=== PATIENT | female | born 1960 | race African-American/Black ===

== ENCOUNTER 2019-07-31 11:46 | Inpatient (IN) | payer BC ==
--- NOTE | 2019-07-31 13:00 | RAD ---
Chest AP view INDICATION: Cough COMPARISON: June 20, 2016 FINDINGS: Lungs:There is a parenchymal scarring involving the left midlung, left upper lobe and right upper lob e appears stable. There are new patchy airspace opacities within the right midlung and right infrahilar region as well as within the left infrahilar region suspicious for pneumonia. Cardiac silhouette:There is moderate cardiomegaly which is stable Pulmonary vasculature:Normal Pleural spaces:No pleural effusion or pneumothorax is demonstrated. Upper abdomen:No abnormality seen. Osseous structures: No acute osseous abnormality. Additional findings:None. IMPRESSION: New bilateral airspace opacities suspicious for pneumonia. Recommend radiographic follow- up to resolution.
[2019-07-31] MEDS ORDERED: Digoxin 0.5 MG/2 ML AMP ONE (13:06)
[2019-07-31] MEDS ORDERED: Magnesium 2 GM/50 ML BAG (IN WATER) ONE (13:06)
[2019-07-31 13:07] LABS: #Eosinphils 0.1 thou/uL (0.0-0.7); #Lymphocytes 1.6 thou/uL (1.20-3.40); #Monocytes 0.5 thou/uL (0.11-0.59); #Neutrophils 5.2 thou/uL (1.40-6.50); %Lymphocytes 21.6 % (21.0-51.0); %Monocytes 7.1 % (0.0-10.0); %Neutrophils 70.3 % (42.0-75.0); Hemoglobin 12.7 g/dL (12.0-16.0); Mean Corpuscular HGB CONC 31.2 g/dL (32.0-36.0); Mean Corpuscular Hemoglobin 26.7 pg (27.0-31.0); Mean Corpuscular Volume 85.5 fL (78.0-98.0); Mean Platelet Volume 10.6 fL (7.4-10.4); Platelet Count 191 thou/uL (130-400); RBC Distribution Width 13.9 % (11.5-14.5); Red Blood Cell (RBC) Count 4.77 mill/uL (4.20-5.40); White Blood Cell (WBC) Count 7.4 thou/uL (4.8-10.8)
[2019-07-31] MEDS ORDERED: Diltiazem 125 MG/25 ML ONE (13:07)
[2019-07-31 13:15] LABS: PTT 34.2 SEC (22.9-36.1)
[2019-07-31 13:16] LABS: D-Dimer Test 0.92 *mcg/mL (0.27-0.43); Prothrombin Time 13.3 SEC (12.0-14.7)
[2019-07-31 13:47] LABS: ALT (SGPT) 34 U/L (8-55); AST (SGOT) 24 U/L (5-34); Albumin 3.7 g/dL (3.5-5.0); Alkaline Phosphatase 110 U/L (40-110); Anion Gap 10 mmol/L (10-20); BUN (Urea Nitrogen) 16 mg/dL (9.8-20.1); Bilirubin, Total 0.5 mg/dL (0.2-1.2); Calc. Creatinine Clearance 0 mL/min (70-130); Calcium 8.7 mg/dL (7.8-10.44); Carbon Dioxide 29 mmol/L (22-29); Chloride 107 mmol/L (98-107); Estimated GFR-MDRD 86; Globulin 3.3 g/dL (2.4-3.5); Glucose 111 mg/dL (70-105); Potassium 3.4 mmol/L (3.5-5.1); Sodium 143 mmol/L (136-145)
--- NOTE | 2019-07-31 14:43 | CT ---
CTA Angio Chest W WO Con 07/31/2019 1:26 PM Indication: Shortness of breath and wheezing Technique: Multiple CTA images were obtained of the thorax with IV contrast. 3-D rendering: MIP more nstructed images were created and reviewed. Comparison: Chest radiograph dated July 31, 2019 and April 20, 2016 Findings: Pulmonary arteries: No central or segmental pulmonary embolus is evident. Mild enlargement of the pu lmonary arteries. The right main pulmonary measures 3 cm. Left main pulmonary artery measures 2.9 cm. The main pulmonary artery measures 3.3 cm. Findings may reflect sequela of underlying secondary p ulmonary artery hypertension. Heart and Aorta: There are vascular consultations of the thoracic aorta. Heart size is mildly enlarg ed. There is a very small pericardial effusion. Mediastinum:Few shotty appearing lymph nodes are seen within the superior and anterior mediastinum as well as within the prevascular space. Lungs:There are patchy areas of peripheral groundglass opacity seen within the right lower lobe, righ t middle lobe and anterior right upper lobe. There are areas of peribronchial thickening involving both upper lobes, left lower lobe and lingula can be seen with a bronchitis. Pleural space: Small bilateral pleural effusions, left greater than right Upper Abdomen: Nodular morphology of the liver suspicious for underlying cirrhosis. Osseous Structures: No acute osseous abnormality. Soft tissues:No abnormality. Other findings:None. Impression: 1. No central or segmental pulmonary embolus. 2. Prominent areas of peribronchial soft tissue thickening involving both upper lobes, lingula and le ft lower lobe suspicious for a bronchitis. 3. Areas of peripheral groundglass disease involving the right lung is suspicious for a infectious pn eumonitis. Recommend CT follow-up to document clearance. 4. Small bilateral pleural effusions. 5. Mild cardiomegaly with small pericardial effusion. 6. Cirrhotic morphology of the liver.
[2019-07-31 16:24] LABS: Troponin I Less than 0.010 ng/mL (< 0.028)
[2019-07-31 19:26] LABS: Troponin I Less than 0.010 ng/mL (< 0.028)
[2019-07-31] MEDS ORDERED: Sodium Chloride For Inhalation 0.9% 3 ML NEB ONE (20:02)
[2019-07-31] MEDS ORDERED: Albuterol Sulfate 2.5 mg/3 ml Neb ONE ×2 (20:02→20:03)
--- NOTE | 2019-07-31 21:30 | HP ---
CHIEF COMPLAINT: Shortness of breath and heart racing fast. HISTORY OF PRESENT ILLNESS: Ms. Ortez is a 58-year-old Afro-Chinese female with past medical history of hypertension, bronchial asthma, came to the office with complaint of shortness of breath going on for a week. The patient states that her shortness of breath is mainly on exertion. She is also having some palpitations as well. Did not have any chest pain, nausea, or vomiting. No headache. No dizziness. She was evaluated in the office and found to have atrial flutter on EKG, so she was sent to the ER, where she was evaluated and found to have atrial flutter with rapid ventricular rate and also some pneumonitis. She was given antibiotics, Levaquin and vancomycin; and was given Cardizem bolus as well as started on infusion. The patient is to have atrial flutter with rapid ventricular rate, but she does not have any shortness of breath. No chest pain. PAST MEDICAL HISTORY: 1. Hypertension. 2. Hyperlipidemia. 3. Bronchial asthma. CURRENT MEDICATIONS: The patient is on blood pressure medication, but is not clear on which medication she is on. Also, on DuoNeb q.i.d. PAST SURGICAL HISTORY: Nothing significant currently. FAMILY HISTORY: Nothing contributory. SOCIAL HISTORY: The patient lives with family. No history of smoking. No history of alcohol. REVIEW OF SYSTEMS: CARDIOVASCULAR: Has shortness of breath. No chest pain. RESPIRATORY: Has cough, congestion, and shortness of breath. No fever. GASTROINTESTINAL: No nausea or vomiting. No abdominal pain. CENTRAL NERVOUS SYSTEM: No headache. No dizziness. PHYSICAL EXAMINATION: GENERAL: The patient is alert, awake, and oriented x3. VITAL SIGNS: Temperature 98, pulse 140, respiration 28, blood pressure 140/90. HEENT: Head is normocephalic, atraumatic. Pupils equal and reactive. Nasopharynx is pale and dry. NECK: Supple. No JVD. LUNGS: Bilateral air entry present. Expiratory wheeze present. HEART: S1, S2. Irregularly irregular, tachycardic. ABDOMEN: Soft. No tenderness. No distention. No organomegaly. Bowel sounds present. RECTAL: Deferred. CENTRAL NERVOUS SYSTEM: No focal deficits. LABORATORY DATA: Unable to access the labs at this time, but it will be reviewed later. IMAGING DATA: Chest x-ray shows possible pneumonitis. EKG shows atrial flutter with rapid ventricular rate of 146. ASSESSMENT: 1. Atrial flutter, new onset with rapid ventricular rate. 2. Possible pneumonitis. 3. Bronchial asthma. 4. Hypertension. 5. Hyperlipidemia. PLAN: 1. Vital signs q.4 hours. 2. Activity as tolerated. 3. Allergies, NKDA. 4. Hep-Lock. 5. Cardizem infusion at 20 mL/hr. 6. DuoNeb 1 unit q.i.d. p.r.n. 7. Continue home medications. 8. Troponin-I q.6 hours x2. 9. Cardiology consult and I will get thyroid panel as well. Job ID: [id number]
[2019-07-31 22:23] VITALS: BMI 46.0
[2019-07-31] MEDS ORDERED: Sodium Chloride 0.9% 1,000 ML IV SCH (22:45)
[2019-07-31] MEDS: Enoxaparin Sodium 100 MG/ML SYRINGE SC SCH (23:42)
[2019-07-31] MEDS ORDERED: Enoxaparin Sodium 100 MG/ML SYRINGE ONE (23:44)
[2019-07-31] MEDS: Amiodarone 450 MG in Dextrose 5% in Water 250 ML IVPB SCH (23:53)
[2019-08-01] MEDS ORDERED: Prevnar 13-Val Conj/PF 0.5 ML SYRINGE IM ONE (06:45)
[2019-08-01] MEDS: Enoxaparin Sodium 100 MG/ML SYRINGE SC SCH ×2 (09:46→20:51)
[2019-08-01] MEDS: Amiodarone 450 MG in Dextrose 5% in Water 250 ML IVPB SCH (09:49)
[2019-08-01] MEDS ORDERED: Potassium Chloride 20 MEQ TAB PO SCH (10:00)
--- NOTE | 2019-08-01 10:26 | CON ---
DATE OF CONSULTATION: 07/31/2019 REASON FOR CONSULTATION: Atrial flutter. HISTORY OF PRESENT ILLNESS: Ms. Ortez is a very pleasant 58-year-old female who comes to the hospital for tachycardia and shortness of breath. She was seen in the ER and found to be in rapid atrial flutter, heart rate in the 140s, so Cardiology is being consulted for this. She has been diagnosed with what appears to be a pneumonitis and is on antibiotics for this. She is on room air and breathing comfortably. PAST MEDICAL HISTORY: 1. Hypertension. 2. Hyperlipidemia. 3. Bronchial asthma. OUTPATIENT MEDICATIONS: 1. Loratadine. 2. Ibuprofen. 3. Advair Diskus. 4. Albuterol inhaler. 5. Rosuvastatin 10 mg a day. 6. Montelukast. 7. Lisinopril/hydrochlorothiazide 20/12.5 mg twice a day. ALLERGIES: VADIM. PAST SURGICAL HISTORY: None. FAMILY HISTORY: Noncontributory. SOCIAL HISTORY: No alcohol, tobacco, or drugs. REVIEW OF SYSTEMS: A 12-point review of systems was done and was all negative unless stated in the history of present illness. PHYSICAL EXAMINATION: VITAL SIGNS: Temperature 98.4, pulse 140, respiratory rate 20, saturating 92% on room air, and blood pressure 147/105. GENERAL: Awake, alert, and oriented x3, in no distress. HEENT: Normocephalic and atraumatic. NECK: Supple. LUNGS: Reduced breath sounds with expiratory wheezes. CARDIOVASCULAR: S1 and S2. No S3 or S4. No murmurs. Tachycardic in the 140s. ABDOMEN: Soft. Positive bowel sounds. EXTREMITIES: Trace edema. SKIN: Warm and dry. LABORATORY DATA: Laboratory work was reviewed. White count of 7, hemoglobin 12, hematocrit 40, and platelet count 191. Coags were reviewed. Chemistries were reviewed. Troponin is undetectable. Potassium was 3.4. TSH was low at 0.26. BNP was 124. EKG was reviewed. ASSESSMENT: 1. Typical atrial flutter. 2. Bronchial asthma. 3. Possible pneumonitis. PLAN: 1. She is going fast on diltiazem drip. She is not slowing down. We will plan on loading her with amiodarone with an amiodarone drip and we will plan on EDEN cardioversion tomorrow. Full anticoagulation with full-dose Lovenox. 2. We spoke at length with risks and benefits of the procedure and the patient agrees to proceed. 3. Further recommendations after cardioversion. 4. We would check full thyroid studies, but her TSH is low. 5. We will follow. Job ID: [id number]
[2019-08-01 11:21] LABS: Free T4 (Free Thyroxine) 1.04 ng/dL (0.70-1.48)
[2019-08-01] MEDS ORDERED: PROVENTIL INHALER 6.7 G (200 INHALATIONS) INH PRN (12:18)
[2019-08-01] MEDS ORDERED: Diltiazem 125 MG in Sodium Chloride 0.9% 100 ML IVPB SCH (12:30)
[2019-08-01] MEDS ORDERED: Lisinopril/Hydrochlorothiazide 20 mg/12.5 mg Tablet PO SCH (12:30)
[2019-08-01] MEDS ORDERED: Loratadine 10 MG TAB PO SCH (12:30)
[2019-08-01] MEDS: Lisinopril/Hydrochlorothiazide 20 mg/12.5 mg Tablet PO SCH (13:58)
--- NOTE | 2019-08-01 18:31 | PDOC.CPN ---
- Subjective Date: 08/01/19 Time: 18:10 Interval history: She is doing well. She denies any chest pain, no palpitations. Her breathing is much better. - Review of Systems General: denies: fever/chills, weight/appetite/sleep changes, night sweats, fatigue Respiratory: denies: cough, congestion, shortness of breath, exercise intolerance Cardiovascular: denies: chest pain, palpitation, edema, paroxysmal nocturnal dyspnea, orthopnea Gastrointestinal: denies: nausea, vomiting, diarrhea, constipation, abd pain, GI bleeding Musculoskeletal: denies: pain, tenderness, stiffness, swelling, arthritis/ arthralgias Neurological: denies: numbness, syncope, seizure, weakness - Objective Allergies/Adverse Reactions: Allergies Allergy/AdvReac Type Severity Reaction Status Date / Time fexofenadine [From Gabby] Allergy Verified 07/31/19 22:26 Visit Medications: Current Medications Albuterol Sulfate (Proventil Hfa) 1 puff INH PRN PRN PRN Reason: SOB Albuterol/Ipratropium (Duoneb) 3 ml NEB QIDPRN PRN PRN Reason: SOB Enoxaparin Sodium (Lovenox) 100 mg SC 0900,2100 [facility] Last Admin: 08/01/19 09:46 Dose: 100 mg Lisinopril/HCTZ (Prinizide 20-12.5) 1 tab PO DAILY MILANA Last Admin: 08/01/19 13:58 Dose: 1 tab Amiodarone HCl 450 mg/ (Dextrose/Water) 259 mls @ 0 mls/hr IVPB INF MILANA; Protocol Last Admin: 08/01/19 09:49 Dose: 259 mls Diltiazem HCl 125 mg/ Sodium (Chloride) 125 mls @ 0 mls/hr IVPB INF MILANA; Protocol Levofloxacin 750 mg/ Device 150 mls @ 150 mls/hr IVPB Q24HR [facility] Last Admin: 08/01/19 13:59 Dose: 150 mls Loratadine (Claritin) 10 mg PO DAILY MILANA Mometasone Furoate/Formoterol Fumar (Dulera 200 Mcg/5 Mcg Inhaler) 2 puff INH BID-RT MILANA Montelukast Sodium (Singulair) 10 mg PO QPM MILANA Rosuvastatin Calcium (Crestor) 10 mg PO HS MILANA Sodium Chloride (Flush - Normal Saline) 10 ml IVF Q12HR [facility] Last Admin: 08/01/19 09:46 Dose: 10 ml Sodium Chloride (Flush - Normal Saline) 10 ml IVF PRN PRN PRN Reason: Saline Flush Vital Signs & Weight: Vital Signs Temp Pulse Pulse Ox 08/01/19 16:00 98.8 F 08/01/19 13:58 140 H 08/01/19 13:30 140 H 08/01/19 12:00 98.7 F 08/01/19 08:00 98.8 F 100 Weight 259 lb 14.8 oz - Physical Exam General: alert & oriented x3 HEENT: mucus membranes moist Neck: supple neck Cardiac: regular rate and rhythm, no murmur Lungs: wheezes Neuro: grossly intact Abdomen: active bowel sounds Extremities: no edema Skin: clear Musculoskeletal: no pain - Labs Result Diagrams: 07/31/19 12:44 07/31/19 12:44 Troponin/CKMB Troponin I Less than 0.010 ng/mL (< 0.028) 07/31/19 18:58 - Telemetry Supraventricular conduction: atrial flutter - Assessment/Plan Assessment/Plan: 1. Atrial flutter. 2. Bronchial asthma 3. Pneumonitis PLAN: - Continue amiodarone drip - Continue Full dose SQ lovenox - Will plan on EDEN/Cardioversion tomorrow morning, Sunday.
[2019-08-01] MEDS: Mometasone/Formoterol 120 PUFF INHALER INH SCH (18:59)
[2019-08-01] MEDS: Montelukast Sodium 10 mg Tablet PO SCH (20:51)
[2019-08-01] MEDS: Rosuvastatin 10 MG TAB PO SCH (20:51)
[2019-08-02] MEDS: Amiodarone 450 MG in Dextrose 5% in Water 250 ML IVPB SCH ×2 (02:56→18:24)
[2019-08-02] MEDS: Mometasone/Formoterol 120 PUFF INHALER INH SCH ×2 (07:36→18:48)
[2019-08-02] MEDS ORDERED: Sodium Chloride 0.65% Nasal 44 ML BOT EA NARE PRN (07:43)
[2019-08-02] MEDS ORDERED: HYDROcodone/Acetaminophen 5/325 mg Tablet PO PRN (07:43)
[2019-08-02] MEDS ORDERED: Zolpidem Tartrate 5 MG TAB PO PRN (07:43)
[2019-08-02] MEDS ORDERED: Loperamide HCl 2 MG CAP PO PRN (07:43)
[2019-08-02] MEDS ORDERED: Labetalol HCl 100 MG/20 ML VIAL SLOW IVP PRN (07:43)
[2019-08-02] MEDS ORDERED: Bisacodyl 10 MG SUPP PR PRN (07:43)
[2019-08-02] MEDS ORDERED: Artificial Tears 18 DROP/0.9 ML EA EYE PRN (07:43)
[2019-08-02] MEDS ORDERED: Senokot S 8.6-50 MG TAB PO PRN (07:43)
[2019-08-02] MEDS ORDERED: Diabetic Tussin 200 MG/10 ML UDCUP PO PRN (07:43)
[2019-08-02] MEDS ORDERED: Metoclopramide HCl 10 MG/2 ML VIAL IVP PRN (07:43)
[2019-08-02] MEDS ORDERED: Cepastat Lozenges 1 LOZ PO PRN (07:43)
[2019-08-02] MEDS: Enoxaparin Sodium 100 MG/ML SYRINGE SC SCH ×2 (08:47→20:00)
[2019-08-02] MEDS: Loratadine 10 MG TAB PO SCH (08:48)
[2019-08-02] MEDS ORDERED: Lisinopril/Hydrochlorothiazide 20 mg/12.5 mg Tablet PO SCH (09:15)
--- NOTE | 2019-08-02 11:05 | PDOC.HOSPP ---
- Subjective Encounter Date: 08/02/19 Encounter Time: 11:00 Subjective: Patient seen and examined. No new complaints. No overnight events - Objective Vital Signs & Weight: Vital Signs (12 hours) Temp Pulse Resp BP Pulse Ox 08/02/19 09:39 135 H 140/100 H 08/02/19 07:15 98.8 F 08/02/19 07:10 18 96 08/02/19 03:29 98.4 F 08/01/19 23:31 98.6 F Weight Weight 259 lb 14.8 oz Most Recent Monitor Data Heart Rate from ECG 135 NIBP 128/88 NIBP BP-Mean 101 Respiration from ECG 20 SpO2 93 I&O: 08/01/19 08/02/19 08/03/19 06:59 06:59 06:59 Intake Total 1364 Output Total 2310 Balance -946 Result Diagrams: 07/31/19 12:44 07/31/19 12:44 Radiology Reviewed by me: Yes EKG Reviewed by me: Yes Hospitalist ROS - Review of Systems ENT: denies: ear pain, ear discharge, nose pain, nose discharge, nose congestion , mouth pain, mouth swelling, throat pain, throat swelling, other Respiratory: denies: cough, dry, shortness of breath, hemoptysis, SOB with excertion, pleuritic pain, sputum, wheezing, other Cardiovascular: denies: chest pain, palpitations, orthopnea, paroxysmal noc. dyspnea, edema, light headedness, other Gastrointestinal: denies: nausea, vomiting, abdominal pain, diarrhea, constipation, melena, hematochezia, other Genitourinary: denies: dysuria, frequency, incontinence, hematuria, retention, other Musculoskeletal: denies: neck pain, shoulder pain, arm pain, back pain, hand pain, leg pain, foot pain, other - Medication Medications: Active Medications Generic Name Dose Route Start Last Admin Trade Name Freq PRN Reason Stop Dose Admin Enoxaparin Sodium 100 mg 07/31/19 21:00 08/02/19 08:47 Lovenox SC 100 mg 0900,2100 MILANA Administration Lisinopril/HCTZ 1 tab 08/02/19 09:00 08/01/19 13:58 Prinizide 20-12.5 PO 1 tab DAILY MILANA Administration Amiodarone HCl 450 mg/ 259 mls @ 0 mls/hr 07/31/19 19:30 08/02/19 02:56 Dextrose/Water IVPB 259 mls INF MILANA Administration Protocol Per Protocol Levofloxacin 750 mg/ Device 150 mls @ 150 mls/hr 08/01/19 14:00 08/01/19 13: 59 IVPB 150 mls Q24HR MILANA Administration Loratadine 10 mg 08/02/19 09:00 08/02/19 08:48 Claritin PO 10 mg DAILY MILANA Administration Mometasone Furoate/Formoterol Fumar 2 puff 08/01/19 18:30 08/02/19 07:36 Dulera 200 Mcg/5 Mcg Inhaler INH 2 puff BID-RT MILANA Administration Montelukast Sodium 10 mg 08/01/19 21:00 08/01/19 20:51 Singulair PO 10 mg QPM MILANA Administration Rosuvastatin Calcium 10 mg 08/01/19 21:00 08/01/19 20:51 Crestor PO 10 mg HS MILANA Administration Sodium Chloride 10 ml 08/01/19 09:00 08/02/19 08:58 Flush - Normal Saline IVF 10 ml Q12HR MILANA Administration - Exam General Appearance: NAD, awake alert Eye: PERRL, anicteric sclera ENT: normocephalic atraumatic, no oropharyngeal lesions Neck: supple, symmetric, no JVD Heart: no murmur, no gallops, no rubs Heart - other findings: tachycardia Respiratory: CTAB, no wheezes, no rales Gastrointestinal: soft, non-tender, non-distended Extremities: no cyanosis, no clubbing Skin: normal turgor, no lesions Neurological: no focal deficits Hosp A/P (1) Atrial flutter with rapid ventricular response Code(s): I48.92 - UNSPECIFIED ATRIAL FLUTTER Status: Acute (2) Morbid obesity with BMI of 45.0-49.9, adult Code(s): E66.01 - MORBID (SEVERE) OBESITY DUE TO EXCESS CALORIES; Z68.42 - BODY MASS INDEX (BMI) 45.0-49.9, ADULT Status: Acute (3) Pneumonia Code(s): J18.9 - PNEUMONIA, UNSPECIFIED ORGANISM Status: Acute (4) Hypertension Code(s): I10 - ESSENTIAL (PRIMARY) HYPERTENSION Status: Chronic Qualifiers: Hypertension type: essential hypertension Qualified Code(s): I10 - Essential (primary) hypertension (5) Dyslipidemia Code(s): E78.5 - HYPERLIPIDEMIA, UNSPECIFIED Status: Chronic (6) COPD (chronic obstructive pulmonary disease) Status: Chronic - Plan old records reviewed/req 08/02/19 continue amiodaron drip continue antibiotic still in aflutter, will need cardioversion and then ablation
[2019-08-02] MEDS: Montelukast Sodium 10 mg Tablet PO SCH (19:59)
[2019-08-02] MEDS: Rosuvastatin 10 MG TAB PO SCH (20:00)
[2019-08-03] MEDS: Mometasone/Formoterol 120 PUFF INHALER INH SCH ×2 (07:19→18:14)
[2019-08-03] MEDS: Loratadine 10 MG TAB PO SCH (09:22)
[2019-08-03] MEDS: Amiodarone 450 MG in Dextrose 5% in Water 250 ML IVPB SCH (09:22)
[2019-08-03] MEDS: Enoxaparin Sodium 100 MG/ML SYRINGE SC SCH ×2 (09:22→20:23)
[2019-08-03] MEDS: Lisinopril/Hydrochlorothiazide 20 mg/12.5 mg Tablet PO SCH (09:22)
--- NOTE | 2019-08-03 14:37 | PDOC.HOSPP ---
- Subjective Encounter Date: 08/03/19 Encounter Time: 11:00 Subjective: Patient seen and examined. No new complaints. No overnight events, pt is till in aflutter - Objective Vital Signs & Weight: Vital Signs (12 hours) Temp Pulse Pulse Ox 08/03/19 11:29 97.7 F 08/03/19 09:22 134 H 08/03/19 08:00 96 08/03/19 07:37 98.0 F 08/03/19 03:56 98.1 F Weight Weight 259 lb 14.8 oz Most Recent Monitor Data Heart Rate from ECG 132 NIBP 144/96 NIBP BP-Mean 112 Respiration from ECG 17 SpO2 88 I&O: 08/02/19 08/03/19 08/04/19 06:59 06:59 06:59 Intake Total 1364 1492 Output Total 2310 1970 1050 [facility] -478 -1050 Result Diagrams: 07/31/19 12:44 07/31/19 12:44 EKG Reviewed by me: Yes (aflutter) Hospitalist ROS - Review of Systems ENT: denies: ear pain, ear discharge, nose pain, nose discharge, nose congestion , mouth pain, mouth swelling, throat pain, throat swelling, other Respiratory: denies: cough, dry, shortness of breath, hemoptysis, SOB with excertion, pleuritic pain, sputum, wheezing, other Cardiovascular: denies: chest pain, palpitations, orthopnea, paroxysmal noc. dyspnea, edema, light headedness, other Gastrointestinal: denies: nausea, vomiting, abdominal pain, diarrhea, constipation, melena, hematochezia, other Genitourinary: denies: dysuria, frequency, incontinence, hematuria, retention, other Musculoskeletal: denies: neck pain, shoulder pain, arm pain, back pain, hand pain, leg pain, foot pain, other - Medication Medications: Active Medications Generic Name Dose Route Start Last Admin Trade Name Freq PRN Reason Stop Dose Admin Enoxaparin Sodium 100 mg 07/31/19 21:00 08/03/19 09:22 Lovenox SC 100 mg 0900,2100 MILANA Administration Lisinopril/HCTZ 1 tab 08/02/19 09:00 08/03/19 09:22 Prinizide 20-12.5 PO 1 tab DAILY MILANA Administration Amiodarone HCl 450 mg/ 259 mls @ 0 mls/hr 07/31/19 19:30 08/03/19 09:22 Dextrose/Water IVPB 259 mls INF MILANA Administration Protocol Per Protocol Levofloxacin 750 mg/ Device 150 mls @ 150 mls/hr 08/01/19 14:00 08/03/19 14: 15 IVPB 150 mls Q24HR MILANA Administration Loratadine 10 mg 08/02/19 09:00 08/03/19 09:22 Claritin PO 10 mg DAILY [facility]ANA Administration Mometasone Furoate/Formoterol Fumar 2 puff 08/01/19 18:30 08/03/19 07:19 Dulera 200 Mcg/5 Mcg Inhaler INH 2 puff BID-RT MILANA Administration Montelukast Sodium 10 mg 08/01/19 21:00 08/02/19 19:59 Singulair PO 10 mg QPM MILANA Administration Rosuvastatin Calcium 10 mg 08/01/19 21:00 08/02/19 20:00 Crestor PO 10 mg HS MILANA Administration Sodium Chloride 10 ml 08/01/19 09:00 08/03/19 09:22 Flush - Normal Saline IVF 10 ml Q12HR MILANA Administration - Exam General Appearance: NAD, awake alert Eye: PERRL, anicteric sclera ENT: normocephalic atraumatic, no oropharyngeal lesions Neck: supple, symmetric, no JVD Heart: RRR, no murmur, no gallops, no rubs Heart - other findings: tachycardia Respiratory: CTAB, no wheezes, no rales, no ronchi Gastrointestinal: soft, non-tender, non-distended, normal bowel sounds Extremities: no cyanosis, no clubbing, no edema Skin: normal turgor, no lesions Neurological: cranial nerve grossly intact, no focal deficits Musculoskeletal: normal tone, normal strength Psychiatric: normal affect, normal behavior Hosp A/P (1) Atrial flutter with rapid ventricular response Code(s): I48.92 - UNSPECIFIED ATRIAL FLUTTER Status: Acute (2) Morbid obesity with BMI of 45.0-49.9, adult Code(s): E66.01 - MORBID (SEVERE) OBESITY DUE TO EXCESS CALORIES; Z68.42 - BODY MASS INDEX (BMI) 45.0-49.9, ADULT Status: Acute (3) Pneumonia Code(s): J18.9 - PNEUMONIA, UNSPECIFIED ORGANISM Status: Acute (4) Hypertension Code(s): I10 - ESSENTIAL (PRIMARY) HYPERTENSION Status: Chronic Qualifiers: Hypertension type: essential hypertension Qualified Code(s): I10 - Essential (primary) hypertension (5) Dyslipidemia Code(s): E78.5 - HYPERLIPIDEMIA, UNSPECIFIED Status: Chronic (6) COPD (chronic obstructive pulmonary disease) Status: Chronic - Plan old records reviewed/req 08/02/19 continue amiodaron drip continue antibiotic still in aflutter, will need cardioversion and then ablation 08/03/19 continue amiodarone drip still in RVR, will monitor in IMCU tomorrow cardioversion and possible ablation
[2019-08-03] MEDS: Montelukast Sodium 10 mg Tablet PO SCH (20:23)
[2019-08-03] MEDS: Rosuvastatin 10 MG TAB PO SCH (20:23)
[2019-08-04] MEDS: Mometasone/Formoterol 120 PUFF INHALER INH SCH ×2 (07:03→20:50)
[2019-08-04] MEDS ORDERED: PROPOFOL 20 ML ONE (08:27)
[2019-08-04] MEDS: Apixaban 5 MG TAB PO SCH ×2 (09:54→20:34)
[2019-08-04] MEDS: Lisinopril/Hydrochlorothiazide 20 mg/12.5 mg Tablet PO SCH (09:54)
[2019-08-04] MEDS: Amiodarone 200 MG TAB PO SCH ×2 (09:54→20:34)
[2019-08-04] MEDS: Loratadine 10 MG TAB PO SCH (09:55)
[2019-08-04 09:56] VITALS: BP 132/76
[2019-08-04] MEDS ORDERED: PROPOFOL 200 MG/20 ML VIAL ONE (11:44)
[2019-08-04] MEDS: Rosuvastatin 10 MG TAB PO SCH (20:34)
[2019-08-04] MEDS: Montelukast Sodium 10 mg Tablet PO SCH (20:34)
[2019-08-05] MEDS: Mometasone/Formoterol 120 PUFF INHALER INH SCH ×2 (08:01→18:52)
[2019-08-05] MEDS: Amiodarone 200 MG TAB PO SCH (09:32)
[2019-08-05] MEDS: Loratadine 10 MG TAB PO SCH (09:32)
[2019-08-05] MEDS: Lisinopril/Hydrochlorothiazide 20 mg/12.5 mg Tablet PO SCH (09:32)
[2019-08-05] MEDS: Apixaban 5 MG TAB PO SCH (09:32)
[2019-08-05 12:52] VITALS: TEMP 97.5
--- NOTE | 2019-08-05 19:10 | PDOC.CPN ---
- Subjective Date: 08/05/19 Time: 19:08 Interval history: She is doing much better. breathing silvestre she is back to normal. She remains in sinus. - Review of Systems General: denies: fever/chills, weight/appetite/sleep changes, night sweats, fatigue Respiratory: denies: cough, congestion, shortness of breath, exercise intolerance Cardiovascular: denies: chest pain, palpitation, edema, paroxysmal nocturnal dyspnea, orthopnea Gastrointestinal: denies: nausea, vomiting, diarrhea, constipation, abd pain, GI bleeding Musculoskeletal: denies: pain, tenderness, stiffness, swelling, arthritis/ arthralgias Neurological: denies: numbness, syncope, seizure, weakness - Objective Allergies/Adverse Reactions: Allergies Allergy/AdvReac Type Severity Reaction Status Date / Time fexofenadine [From Gabby] Allergy Verified 07/31/19 22:26 Visit Medications: Current Medications Hydrocodone Bitart/Acetaminophen ([place] 5/325) 1 tab PO Q4H PRN PRN Reason: Moderate Pain (4-6) Albuterol Sulfate (Proventil Hfa) 1 puff INH PRN PRN PRN Reason: SOB Albuterol/Ipratropium (Duoneb) 3 ml NEB QIDPRN PRN PRN Reason: SOB Last Admin: 08/05/19 07:56 Dose: 3 ml Amiodarone HCl (Cordarone) 400 mg PO BID [facility] Last Admin: 08/05/19 09:32 Dose: 400 mg Apixaban (Eliquis) 5 mg PO BID [facility] Last Admin: 08/05/19 09:32 Dose: 5 mg Artificial Tears (Tears Naturale) 2 drop EA EYE PRN PRN PRN Reason: Dry Eyes Bisacodyl (Dulcolax) 10 mg AL DAILYPRN PRN PRN Reason: Constipation Guaifenesin (Robitussin Sf) 200 mg PO Q4H PRN PRN Reason: Cough Lisinopril/HCTZ (Prinizide 20-12.5) 1 tab PO DAILY [facility] Last Admin: 08/05/19 09:32 Dose: 1 tab Diltiazem HCl 125 mg/ Sodium (Chloride) 125 mls @ 0 mls/hr IVPB INF MILANA; Protocol Levofloxacin 750 mg/ Device 150 mls @ 150 mls/hr IVPB Q24HR [facility] Last Admin: 08/05/19 14:51 Dose: 150 mls Labetalol HCl (Normodyne) 20 mg SLOW IVP Q4H PRN PRN Reason: SBP > 180 and HR >/= 70 Loperamide HCl (Imodium) 2 mg PO PRN PRN PRN Reason: Diarrhea/Loose Stools Loratadine (Claritin) 10 mg PO DAILY [facility] Last Admin: 08/05/19 09:32 Dose: 10 mg Metoclopramide HCl (Reglan) 5 mg IVP Q4H PRN PRN Reason: Nausea Mometasone Furoate/Formoterol Fumar (Dulera 200 Mcg/5 Mcg Inhaler) 2 puff INH BID-RT [facility] Last Admin: 08/05/19 18:52 Dose: 2 puff Montelukast Sodium (Singulair) 10 mg PO QPM [facility] Last Admin: 08/04/19 20:34 Dose: 10 mg Rosuvastatin Calcium (Crestor) 10 mg PO HS [facility] Last Admin: 08/04/19 20:34 Dose: 10 mg Senna/Docusate Sodium (Senokot S) 2 tab PO BID PRN PRN Reason: Constipation Sodium Chloride (Flush - Normal Saline) 10 ml IVF Q12HR [facility] Last Admin: 08/05/19 09:36 Dose: 10 ml Sodium Chloride (Flush - Normal Saline) 10 ml IVF PRN PRN PRN Reason: Saline Flush Sodium Chloride ([place] Nasal [place] 0.65%) 0 ml EA NARE QIDPRN PRN PRN Reason: Nasal Congestion Throat Lozenges (Cepastat Lozenges) 1 kameron PO Q2H PRN PRN Reason: Sore Throat Zolpidem Tartrate (Ambien) 5 mg PO HSPRN PRN PRN Reason: Insomnia Vital Signs & Weight: Vital Signs Temp Pulse Resp Pulse Ox 08/05/19 18:52 84 08/05/19 12:51 97.5 F L 08/05/19 09:32 80 08/05/19 07:56 75 18 92 L Weight 259 lb 14.8 oz - Physical Exam General: alert & oriented x3 HEENT: mucus membranes moist Neck: supple neck Cardiac: regular rate and rhythm Lungs: clear to auscultation Neuro: grossly intact Abdomen: active bowel sounds Extremities: no edema Skin: clear Musculoskeletal: no pain - Labs Result Diagrams: 07/31/19 12:44 07/31/19 12:44 Troponin/CKMB Troponin I Less than 0.010 ng/mL (< 0.028) 07/31/19 18:58 - Telemetry Sinus rhythms and dysrhythmias: sinus rhythm - Assessment/Plan Assessment/Plan: 1. Atrial flutter, s/p DCCV 2. Bronchial asthma 3. Pneumonitis PLAN: - PO amiodarone load. - Eliquis 5 mg BID for stroke prophylaxis. - May discharge home. Will follow up in 1 month in the office. Likely will refer to EP for consideration of an ablation as outpatient.
--- NOTE | 2019-08-05 20:07 | OP ---
DATE OF SERVICE: 08/04/19 PREPROCEDURE DIAGNOSIS: Atrial flutter typical POSTPROCEDURE DIAGNOSIS: Successful cardioversion. SUMMARY: The patient is a pleasant 59-year-old -[place] female who comes to the PCU for cardioversion. EDEN cleared her left atrial appendage prior to procedure. After adequate sedation was achieved, by the anesthesiology department, one single synchronized shock was delivered at 100 joules successfully converting her from typical atrial flutter into sinus rhyth m. The patient tolerated the procedure well. RECOMMENDATIONS: 1. Continued Amiodarone. We will switch to p.o. dosing. 2. Transesophageal echo could not see LV function or valvular structures well enough, so we will do a transthoracic echo. 3. May discharge after transthoracic echo done.
== END 2019-08-05 19:31 | disposition home or self-care (01) | DRG 308 ==
LOC: ERS 11:46 → ERHOLD 15:37 → CCU 08-01 06:30 → IMCU/EMU 08-01 19:32
PROVIDERS: ADMIT Internal Medicine; ATTEND Internal Medicine
PROC: 5A2204Z Restoration of Cardiac Rhythm, Single (ICD-10-PCS; principal; 2019-08-04)
DX: I48.92 Unspecified atrial flutter (principal); J18.9 Pneumonia, unspecified organism; Z68.42 Body mass index [BMI] 45.0-49.9, adult; J44.0 Chronic obstructive pulmonary disease with (acute) lower respiratory infection; I10 Essential (primary) hypertension; E78.5 Hyperlipidemia, unspecified; E66.01 Morbid (severe) obesity due to excess calories; J45.998 Other asthma
CPT/HCPCS: 36415; 36416; 71045; 71275; 80053; 82550; 83605; 83880; 84439; 84443; 84481; 84484; 85025; 85379; 85610; 85730; 87040; 92960; 93005; 93010; 93306; 93312; 94640; 94664; J0282; J1160; J1650; J1956; J2704; J3370; J3475; J7070; J7611; J7620

== ENCOUNTER 2019-08-13 11:18 | Inpatient (IN) | payer BC ==
[2019-08-13] MEDS ORDERED: Metoprolol Tartrate 5 MG/5 ML VIAL ONE (11:54)
--- NOTE | 2019-08-13 12:15 | RAD ---
PORTABLE CHEST 1 VIEW: Date: 06/12/2020 Time: 1209 hours HISTORY: Chest pain, atrial flutter. FINDINGS/IMPRESSION: Comparison made to exam of 07/31/2019. The heart is enlarged. Chronic changes in the lung messer are again seen bilaterally. No lobar consol idation, pneumothoraces, palomo pulmonary edema, or large effusions are identified. POS: OFF
[2019-08-13 12:18] LABS: #Eosinphils 0.1 thou/uL (0.0-0.7); #Lymphocytes 1.2 thou/uL (1.20-3.40); #Monocytes 0.5 thou/uL (0.11-0.59); #Neutrophils 5.1 thou/uL (1.40-6.50); %Basophils 0.6 % (0.0-1.0); %Eosinophils 1.2 % (0.0-10.0); %Lymphocytes 17.5 % (21.0-51.0); %Monocytes 7.3 % (0.0-10.0); %Neutrophils 73.5 % (42.0-75.0); Hemoglobin 12.9 g/dL (12.0-16.0); Mean Corpuscular HGB CONC 32.2 g/dL (32.0-36.0); Mean Corpuscular Hemoglobin 27.2 pg (27.0-31.0); Mean Corpuscular Volume 84.4 fL (78.0-98.0); Mean Platelet Volume 9.6 fL (7.4-10.4); Platelet Count 192 thou/uL (130-400); RBC Distribution Width 13.5 % (11.5-14.5); Red Blood Cell (RBC) Count 4.75 mill/uL (4.20-5.40)
[2019-08-13 13:02] LABS: ALT (SGPT) 27 U/L (8-55); AST (SGOT) 25 U/L (5-34); Albumin 3.5 g/dL (3.4-4.8); Alkaline Phosphatase 89 U/L (40-110); Anion Gap 13 mmol/L (10-20); BUN (Urea Nitrogen) 20 mg/dL (9.8-20.1); Bilirubin, Total 0.4 mg/dL (0.2-1.2); Calc. Creatinine Clearance 0 mL/min (70-130); Calcium 8.4 mg/dL (7.8-10.44); Carbon Dioxide 26 mmol/L (23-31); Chloride 107 mmol/L (98-107); Estimated GFR-MDRD 79; Globulin 3.4 g/dL (2.4-3.5); Glucose 88 mg/dL (80-115); Magnesium 1.9 mg/dL (1.6-2.6); Potassium 4.5 mmol/L (3.5-5.1); Protein, Total 6.9 g/dL (6.0-8.3); Sodium 141 mmol/L (136-145)
[2019-08-13 15:35] VITALS: BMI 41.8
[2019-08-13 16:20] LABS: Troponin I 0.012 ng/mL (< 0.028)
[2019-08-13 18:46] LABS: Troponin I 0.013 ng/mL (< 0.028)
--- NOTE | 2019-08-13 19:17 | CON ---
DATE OF CONSULTATION: 08/13/2019 REASON FOR CONSULTATION: Atrial flutter. PRIMARY [employer] SYSTEMS ENGINEER: Augie Schulz MD HISTORY OF PRESENT ILLNESS: Mrs. Ortez is a pleasant 59-year-old female, who comes to the hospital for atrial flutter. She was in the hospital, admitted on July 31, for what appeared to be bronchial asthma, pneumonitis. She was treated with antibiotics and nebulizations. She did much better. At that time, she was in atrial flutter around 140s, could not slow her down. She ended up having a EDEN cardioversion, which successfully converted into sinus rhythm. She has been on amiodarone load IV for about 3 or 4 days prior to the shock, and she went home and did very well. She went to see her primary care doctor today, Dr. Shah, who actually did an EKG and noticed that she was back in atrial flutter, heart rate in the 110s. She was admitted and she was getting more short winded from this. Currently, on my evaluation, she feels still a little bit short winded, but well otherwise. No chest pain. No angina. No other issues. PAST MEDICAL HISTORY: 1. Hypertension. 2. Hyperlipidemia. 3. Bronchial asthma. 4. Typical atrial flutter. OUTPATIENT MEDICATIONS: 1. Crestor 10 mg at bedtime. 2. Montelukast. 3. Loratadine. 4. Lisinopril-hydrochlorothiazide 20/12.5 mg b.i.d. 5. Ibuprofen p.r.n. 6. Advair Diskus. 7. Vitamin C. 8. Eliquis 5 mg b.i.d. 9. Amiodarone 200 mg a day. 10. Albuterol 90 mcg p.r.n. ALLERGIES: FEXOFENADINE. PAST SURGICAL HISTORY: None. FAMILY HISTORY: Noncontributory. SOCIAL HISTORY: No alcohol, tobacco, or drugs. REVIEW OF SYSTEMS: A 12-point review of systems was negative unless stated in the history of present illness. PHYSICAL EXAMINATION: VITAL SIGNS: Temperature 97.6, pulse 112, respiratory rate 16, saturating 95% on room air, blood pressure 140/87. GENERAL: Awake, alert, and oriented x3, in no distress. HEENT: Normocephalic and atraumatic. NECK: Supple. LUNGS: Clear. CARDIOVASCULAR: S1 and S2. No S3 or S4. No murmurs. ABDOMEN: Soft. Positive bowel sounds. EXTREMITIES: No edema. SKIN: Warm and dry. LABORATORY DATA: Laboratory work was reviewed. CBC and CMP were reviewed, unremarkable. Troponin is negative x3. IMAGING STUDIES: EKG was reviewed, typical atrial flutter. Heart rate in the 112. Chest x-ray was reviewed. ASSESSMENT: Typical atrial flutter. PLAN: 1. We will consult EP for consideration of flutter ablation. 2. We will stop amiodarone as she has been constipated since this medicine was started. 3. Continue Eliquis for stroke prophylaxis perioperatively. 4. Further recommendations per results of EP consultation. Job ID: [id number]
[2019-08-13] MEDS ORDERED: PROVENTIL INHALER 6.7 G (200 INHALATIONS) INH PRN (19:49)
[2019-08-13] MEDS ORDERED: Loratadine 10 MG TAB PO PRN (19:54)
[2019-08-13] MEDS: Lisinopril/Hydrochlorothiazide 20 mg/12.5 mg Tablet PO SCH (20:43)
[2019-08-13] MEDS: Apixaban 5 MG TAB PO SCH (20:44)
[2019-08-13] MEDS: Rosuvastatin 10 MG TAB PO SCH (20:44)
--- NOTE | 2019-08-14 08:00 | HP ---
REASON FOR ADMISSION AND CHIEF COMPLAINT: Atrial flutter. HISTORY OF PRESENT ILLNESS: Ms. Ortez is a 59-year-old female with past medical history of hypertension, bronchial asthma, who was in the hospital last month for atrial flutter, was cardioverted to normal sinus rhythm and sent home. She was on amiodarone. The patient came to my office today for followup and she was again in atrial flutter. She was tachycardic with heart rate of 140s. EKG was done. EKG showed atrial flutter with a heart rate of 125. The patient did not have any shortness of breath. No chest pain. No nausea or vomiting. No headache. No dizziness. The patient was transferred to the hospital in view of recurrent atrial flutter, where she was evaluated in the ER and given metoprolol which she responded and heart rate came down below 100. The patient is admitted and Cardiology is consulted. The patient may possibly go for an ablation on this admission. PAST MEDICAL HISTORY: 1. Hypertension. 2. Hyperlipidemia. 3. Bronchial asthma. PAST SURGICAL HISTORY: Nothing significant. CURRENT MEDICATIONS: The patient is on: 1. Amiodarone 200 mg daily. 2. Apixaban (Eliquis) 5 mg b.i.d. 3. Vitamin C one tablet daily. 4. Advair Diskus 250/50 one inhaled b.i.d. 5. Lisinopril with hydrochlorothiazide 20/12.5 b.i.d. 6. Singulair 10 mg daily. 7. Crestor 10 mg at bedtime. 8. Albuterol inhaler 1 INH p.r.n. ALLERGIES: NKDA. FAMILY HISTORY: Nothing contributory. SOCIAL HISTORY: The patient lives with family. No history of smoking. No history of alcohol. REVIEW OF SYSTEMS: CARDIOVASCULAR: No chest pain. No shortness of breath. RESPIRATORY: No fever or cough. GASTROINTESTINAL: No nausea, vomiting, or abdominal pain. CENTRAL NERVOUS SYSTEM: No headache. No dizziness. PHYSICAL EXAMINATION: GENERAL: The patient is alert, awake, oriented x3. VITAL SIGNS: Temp 98, pulse 112, respirations 20, blood pressure 140/80. HEENT: Head is normocephalic, atraumatic. Pupils equal, round, reactive. Nasopharynx is pale and dry. NECK: Supple. No JVD. LUNGS: Bilateral air entry. No rales or rhonchi. HEART: S1 and S2. Irregularly irregular. ABDOMEN: Soft. No distention. No tenderness. No organomegaly. Bowel sounds present. RECTAL: Deferred. CENTRAL NERVOUS SYSTEM: No focal deficits. LABORATORY DATA: CBC shows WBC 7, hemoglobin 12, hematocrit 40, platelets 192. Metabolic panel; sodium 140, potassium 4.5, chloride 107, CO2 26, urine nitrogen 20, creatinine 0.9, glucose 88. Troponin I less than 0.01. Chest x-ray negative, only chronic changes seen. EKG shows atrial flutter with rapid ventricular rate of 125. ASSESSMENT: 1. Atrial flutter, recurrent with rapid ventricular response. 2. Hypertension. 3. Bronchial asthma. 4. Hyperlipidemia. PLAN: 1. Vital signs q.4 hours. 2. Activities, as tolerated. 3. Allergies, NKDA. 4. Hep-Lock. 5. Continue home medications. 6. Cardiac diet. 7. Cardiology consult. 8. Metoprolol p.r.n. Job ID: [id number]
[2019-08-14] MEDS: Mometasone/Formoterol 120 PUFF INHALER INH SCH ×2 (08:14→18:23)
[2019-08-14] MEDS ORDERED: Amiodarone 200 MG TAB PO SCH (09:00)
[2019-08-14] MEDS: Apixaban 5 MG TAB PO SCH ×3 (09:26→20:15)
[2019-08-14] MEDS: Lisinopril/Hydrochlorothiazide 20 mg/12.5 mg Tablet PO SCH ×2 (09:26→20:15)
[2019-08-14] MEDS: Ascorbic Acid 500 mg Chewable Tablet PO SCH (09:27)
[2019-08-14] MEDS: Montelukast Sodium 10 mg Tablet PO SCH (09:27)
--- NOTE | 2019-08-14 11:19 | CON ---
DATE OF CONSULTATION: 08/13/2019 REASON FOR CONSULTATION: I am seeing Ms. Ortez at our [facility] as an electrophysiology performance improvement consultant. Her problems are: 1. Recurrent typical isthmus dependent morphology atrial flutter with rapid rates. a. Recent hospitalization for the same, requiring EDEN cardioversion and IV amiodarone loading, and recurrent despite probably in the current admission. 2. History of hypertension and hyperlipidemia. 3. History of bronchial asthma. 4. CHADS-VASc score of 2 with gender and hypertension, on Eliquis. ALLERGIES: FEXOFENADINE. MEDICATIONS: At home, include; 1. Crestor. 2. Montelukast. 3. Loratadine. 4. Lisinopril. 5. Ibuprofen. 6. Advair Diskus. 7. Vitamin C. 8. Eliquis 5 mg twice a day. 9. Amiodarone 200 mg a day. 10. Albuterol. SUBJECTIVE: Ms. Ortez is here with recurrent palpitations. She was also markedly dyspneic. She was found again back to in an atrial flutter with 2:1 AV conduction at rapid rate and was hospitalized. She was started on diltiazem. Dr. Schulz evaluated the patient and amiodarone was stopped, and I was requested for further EP evaluation. Currently, she has improving symptoms at rest, though denies PND or orthopnea. No chest pains. No fever, chills, or cough. Does not pass out. No stroke-like symptoms. No bleeding issues on Eliquis. REVIEW OF SYSTEMS: Rest of 12-point system otherwise unremarkable. PAST MEDICAL HISTORY: As above. She has history of elevated BMI. SOCIAL HISTORY: The patient denies history of smoking, EtOH, or drug abuse. Lives with family. FAMILY HISTORY: Not contributory. OBJECTIVE DATA: VITAL SIGNS: Blood pressure 170/75, heart rate 122, respirations 18, and temperature 98.4 degrees Fahrenheit. GENERAL: This is an alert and oriented woman, in no apparent distress. NECK: Supple. Jugular veins not distended. CHEST: Coarse without crackles. HEART: Sounds are regular,but tachycardic. No murmur or gallop. ABDOMEN: Benign. Bowel sounds positive. EXTREMITIES: Lower extremities without edema, clubbing, or cyanosis. Pulses are adequate. NEUROLOGIC: Nonfocal. MUSCULOSKELETAL: Without joint swelling or deformity. SKIN: Without rash. DATABASE: EKG is reviewed, revealed atrial flutter, appears to be typical isthmus dependent morphology with 2:1 AV conduction, rate about 120 beats per minute. LABORATORY DATA: White cell count is 7, hemoglobin 12.9, and platelet count is 192. Sodium 141, potassium 4.5, BUN is 20, and creatinine 0.88. Cardiac enzymes are negative x3. ASSESSMENT AND PLAN: Ms. Ortez is a pleasant 59-year-old woman with prior history of atrial flutter, but attempt to suppress with amiodarone so far failed due to recurrence. Atrial flutter appears to be typical isthmus dependent in morphology. She has no prior history of atrial fibrillation or other atrial arrhythmias. She also has no history of cardiac issues. Recent EDEN was negative for clots, but was suboptimal for evaluating cardiac structures. We will obtain a repeat 2D echocardiogram. We discussed the mechanism of atrial flutter versus atrial fibrillation. We discussed the potential benefit for a cavotricuspid isthmus ablation and evaluation for inducible atrial fibrillation as well. She understands the procedure and agreeable to discuss the risks of stroke, bleeding, tamponade, recurrences as well. Should she develop significant AFib, assess CTI ablation and antiarrhythmic agents or later pulmonary venous isolation procedure could be a consideration. Anticoagulation. Continue Eliquis. Hold for the above procedure and resume afterwards at least a month and monitor for recurrent arrhythmias. Job ID: [id number] MTDD
[2019-08-14] MEDS ORDERED: Docusate 100 MG CAP PO SCH (12:30)
--- NOTE | 2019-08-14 19:20 | PDOC.CPN ---
- Subjective Date: 08/14/19 Time: 19:18 Interval history: No new issues. - Review of Systems General: denies: fever/chills, weight/appetite/sleep changes, night sweats, fatigue Respiratory: denies: cough, congestion, shortness of breath, exercise intolerance Cardiovascular: denies: chest pain, palpitation, edema, paroxysmal nocturnal dyspnea, orthopnea Gastrointestinal: denies: nausea, vomiting, diarrhea, constipation, abd pain, GI bleeding Musculoskeletal: denies: pain, tenderness, stiffness, swelling, arthritis/ arthralgias Neurological: denies: numbness, syncope, seizure, weakness - Objective Allergies/Adverse Reactions: Allergies Allergy/AdvReac Type Severity Reaction Status Date / Time fexofenadine [From Gabby] Allergy Verified 08/13/19 15:27 Visit Medications: Current Medications Albuterol Sulfate (Proventil Hfa) 1 puff INH PRN PRN PRN Reason: SOB &/or Wheezing Apixaban (Eliquis) 5 mg PO BID [facility] Last Admin: 08/14/19 16:53 Dose: Not Given Ascorbic Acid (Vitamin C) 1,000 mg PO DAILY [facility] Last Admin: 08/14/19 09:27 Dose: 1,000 mg Docusate Sodium (Colace) 100 mg PO BID [facility] Lisinopril/HCTZ (Prinizide 20-12.5) 1 tab PO BID [facility] Last Admin: 08/14/19 09:26 Dose: 1 tab Loratadine (Claritin) 10 mg PO DAILYPRN PRN PRN Reason: ALLERGIES Mometasone Furoate/Formoterol Fumar (Dulera 200 Mcg/5 Mcg Inhaler) 2 puff INH BID-RT [facility] Last Admin: 08/14/19 18:23 Dose: 2 puff Montelukast Sodium (Singulair) 10 mg PO DAILY [facility] Last Admin: 08/14/19 09:27 Dose: 10 mg Rosuvastatin Calcium (Crestor) 10 mg PO HS [facility] Last Admin: 08/13/19 20:44 Dose: 10 mg Vital Signs & Weight: Vital Signs Temp Pulse Resp BP BP Pulse Ox 08/14/19 16:00 98.3 F 127 H 17 126/86 94 L 08/14/19 11:44 97.5 F L 126 H 17 110/68 93 L 08/14/19 09:19 98.7 F 130 H 16 135/91 H 96 Weight 251 lb - Physical Exam General: alert & oriented x3 HEENT: mucus membranes moist Neck: supple neck Cardiac: irregularly regular Lungs: clear to auscultation Neuro: grossly intact Abdomen: active bowel sounds Extremities: no edema Skin: clear Musculoskeletal: no pain - Labs Result Diagrams: 08/13/19 12:06 08/13/19 12:06 Troponin/CKMB Troponin I 0.013 ng/mL (< 0.028) 08/13/19 18:11 - Telemetry Supraventricular conduction: atrial flutter - Assessment/Plan Assessment/Plan: 1. Typical atrial flutter. PLAN: - EP to do ablation tomorrow. - Will need Eliquis post procedure.
[2019-08-14] MEDS: Rosuvastatin 10 MG TAB PO SCH (20:15)
[2019-08-14] MEDS: Docusate 100 MG CAP PO SCH (20:15)
[2019-08-15] MEDS: Mometasone/Formoterol 120 PUFF INHALER INH SCH ×2 (07:23→18:43)
--- NOTE | 2019-08-15 08:21 | PRG ---
DATE OF SERVICE: 08/14/2019 SUBJECTIVE: Ms. Ortez has been doing well, but with continued rapid heart rates. Dyspnea has somewhat improved. She is also mostly bed confined. OBJECTIVE: VITAL SIGNS: Blood pressure 135/91, heart rate 130, respirations 16, and temperature 98.7 degrees Fahrenheit. GENERAL: Alert and oriented woman, in no apparent distress. NECK: Is supple. Jugular veins not distended. CHEST: Coarse without crackles. HEART: Sounds are regular but tachycardic. No murmur or gallop. ABDOMEN: Benign. Bowel sounds positive. EXTREMITIES: Lower extremities without edema, clubbing, or cyanosis. DATABASE: Telemetry strips continued to reveal typical isthmus-dependent atrial flutter with 2:1 AV conduction. ASSESSMENT AND PLAN: Ms. Ortez is a pleasant 59-year-old woman with prior history of hypertension, who has presented with recurrent atrial flutter which is resilient to IV, then p.o. amiodarone loading so far. She is referred for further possible ablation. We are planning to perform the ablation tomorrow, again discussed the rationale and the risks of procedure including infection, bleeding, tamponade, recurrence, and stroke. She understands and willing to proceed. We will keep her n.p.o. after midnight and hold Eliquis in the morning. Job ID: [id number]
[2019-08-15] MEDS ORDERED: PROPOFOL 200 MG/20 ML VIAL ONE (11:26)
[2019-08-15] MEDS ORDERED: Lidocaine 1% (PF) 30 ML VIAL ONE (11:49)
[2019-08-15] MEDS ORDERED: Heparin (Artline) 1,000 ML ONE (11:49)
[2019-08-15] MEDS ORDERED: Fentanyl 100 MCG/2 ML VIAL ONE ×2 (12:25→13:42)
[2019-08-15] MEDS ORDERED: Midazolam HCl 2 mg/2 ml Vial ONE (12:26)
[2019-08-15] MEDS ORDERED: DOPamine 400 MG/D5W 250 ML 250 ML ONE (13:24)
[2019-08-15] MEDS ORDERED: Propofol 500 MG/50 ML VIAL ONE (13:27)
[2019-08-15] MEDS ORDERED: Acetaminophen/Codeine 30-300mg Tablet PO PRN ×2 (14:30)
--- NOTE | 2019-08-15 16:14 | OP ---
DATE OF PROCEDURE: 08/15/2019 PROCEDURE PERFORMED: Electrophysiology study and radiofrequency ablation. REASON FOR PROCEDURE: Ms. Ortez is a 59-year-old woman who has presented with a sustained atrial flutter, typical isthmus dependent, last week and then underwent a EDEN-guided cardioversion after amiodarone loading. Despite she had recurrence, requiring repeat admission and again sustained typical isthmus dependent atrial flutter was noted. She is to continue with anticoagulation. She is here for ablation of the atrial flutter circuit. DESCRIPTION OF PROCEDURE: The patient received deep sedation by anesthesia specialist. The right femoral venous area was prepped, draped, and anesthetized using subcutaneous lidocaine. Under ultrasound guidance, two 8-Azerbaijani short sheaths were introduced. Through this, a ThermoCool SFST catheter and a decapolar catheter advanced to the right atrium. The 3D map of the right atrium, His bundle, CS, and isthmus were created and the decapolar catheter was advanced to the right ventricle, His bundle, right atrium, and CS positions. Pacing mapping and recording was performed at each location. Following findings were noted. Baseline rhythm was atrial flutter with RR interval of 89 to 90 milliseconds, HV interval was 52 milliseconds, the atrial flutter cycle length was 230 milliseconds, overdrive pacing at the cavotricuspid isthmus entering the tachycardia and the post pacing interval equals the tachycardia cycle length, suggestive of isthmus dependent circuit. Following that, the radiofrequency ablation delivered at the cavotricuspid isthmus. A total of 5 lesions delivered at 40 del real. Total duration 6 minutes and 30 seconds. During the radiofrequency ablation, atrial flutter terminated. Proximal CS pacing was performed with further lesions placed to prolong the transisthmus time up to 160 milliseconds. Transisthmus block was demonstrated with longest transisthmus time adjacent to the ablation line seen laterally. During the ablation on one occasion, spontaneous induction atrial fibrillation was seen, which was cardioverted back to sinus rhythm with a 200-joule shock. At this point, basic EP study was performed. The retrograde Wenckebach cycle length was 360 milliseconds with concentric retrograde VA activation. Antegrade Wenckebach cycle length was 380 milliseconds. AV alexis ERP was 600/280 milliseconds with jump only observed prior to the block. Burst atrial pacing did not reinduce atrial arrhythmias or additional atrial flutter after the ablation. No atrial fibrillations were seen either. Dopamine was administered and the patency of the isthmus was again rechecked. Any reconnection re-ablated. At the end of the case, the cardiac silhouette did not change. The patient remained stable. No complications noted. The sheaths were removed. The short sheaths were closed with Vascade closure device with ultrasound guidance. CONCLUSION: 1. Typical isthmus-dependent atrial flutter at baseline. 2. Cavotricuspid isthmus ablation eliminated atrial flutter and re-inducibility. 3. Transient atrial fibrillation seen, which was cardioverted. 4. Normal sinus, normal AV alexis, and His-Purkinje function. No evidence of accessory pathway or permanent AV alexis physiology is seen. PLAN: Continue anticoagulation short term. Monitor for recurrent arrhythmias. Consider repeat ablation if recurrence is seen or alternatively antiarrhythmic agents could be also considered. Job ID: [id number]
[2019-08-15] MEDS: Lisinopril/Hydrochlorothiazide 20 mg/12.5 mg Tablet PO SCH ×2 (16:43→19:37)
[2019-08-15] MEDS: Docusate 100 MG CAP PO SCH ×2 (16:43→19:37)
[2019-08-15] MEDS: Ascorbic Acid 500 mg Chewable Tablet PO SCH (17:01)
[2019-08-15] MEDS: Montelukast Sodium 10 mg Tablet PO SCH (17:02)
[2019-08-15] MEDS: Rosuvastatin 10 MG TAB PO SCH (19:37)
[2019-08-15] MEDS: Apixaban 5 MG TAB PO SCH (19:37)
--- NOTE | 2019-08-15 20:49 | PDOC.CPN ---
- Subjective Date: 08/15/19 Time: 20:48 Interval history: She had her A flutter isthmus ablation without issues. - Review of Systems General: denies: fever/chills, weight/appetite/sleep changes, night sweats, fatigue Respiratory: denies: cough, congestion, shortness of breath, exercise intolerance Cardiovascular: denies: chest pain, palpitation, edema, paroxysmal nocturnal dyspnea, orthopnea Gastrointestinal: denies: nausea, vomiting, diarrhea, constipation, abd pain, GI bleeding Musculoskeletal: denies: pain, tenderness, stiffness, swelling, arthritis/ arthralgias Neurological: denies: numbness, syncope, seizure, weakness - Objective Allergies/Adverse Reactions: Allergies Allergy/AdvReac Type Severity Reaction Status Date / Time fexofenadine [From Gabby] Allergy Verified 08/13/19 15:27 Visit Medications: Current Medications Acetaminophen/Codeine Phosphate (Tylenol #3) 1 tab PO Q4H PRN PRN Reason: Mild Pain (1-3) Acetaminophen/Codeine Phosphate (Tylenol #3) 2 tab PO Q4H PRN PRN Reason: Moderate Pain (4-6) Albuterol Sulfate (Proventil Hfa) 1 puff INH Q4H PRN PRN Reason: SOB &/or Wheezing Apixaban (Eliquis) 5 mg PO BID [facility] BEDS AT [facility] Last Admin: 08/15/19 19:37 Dose: 5 mg Ascorbic Acid (Vitamin C) 1,000 mg PO DAILY [facility] 234 BEDS AT THE [facility] Last Admin: 08/15/19 17:01 Dose: 1,000 mg Docusate Sodium (Colace) 100 mg PO BID [facility] 234 BEDS AT THE [facility] Last Admin: 08/15/19 19:37 Dose: 100 mg Lisinopril/HCTZ (Prinizide 20-12.5) 1 tab PO BID [facility] 234 BEDS AT [facility] Last Admin: 08/15/19 19:37 Dose: 1 tab Loratadine (Claritin) 10 mg PO DAILYPRN PRN PRN Reason: ALLERGIES Mometasone Furoate/Formoterol Fumar (Dulera 200 Mcg/5 Mcg Inhaler) 2 puff INH BID-RT [facility]CLUDE 234 BEDS AT THE [facility] Last Admin: 08/15/19 18:43 Dose: 2 puff Montelukast Sodium (Singulair) 10 mg PO DAILY [facility] 234 BEDS AT THE [facility] Last Admin: 08/15/19 17:02 Dose: 10 mg Rosuvastatin Calcium (Crestor) 10 mg PO HS [facility]S [facility]CLUDE 234 BEDS AT THE [facility] Last Admin: 08/15/19 19:37 Dose: 10 mg Vital Signs & Weight: Vital Signs Temp Pulse Resp BP BP BP Pulse Ox 08/15/19 19:37 76 101/53 L 08/15/19 16:15 97.4 F L 65 20 107/61 97 08/15/19 11:10 97.9 F 130 H 18 115/83 96 Weight 251 lb - Physical Exam General: alert & oriented x3 HEENT: mucus membranes moist Neck: supple neck Cardiac: regular rate and rhythm Lungs: clear to auscultation Neuro: grossly intact Abdomen: active bowel sounds Extremities: no edema Skin: clear Musculoskeletal: no pain - Labs Result Diagrams: 08/13/19 12:06 08/13/19 12:06 Troponin/CKMB Troponin I 0.013 ng/mL (< 0.028) 08/13/19 18:11 - Telemetry Sinus rhythms and dysrhythmias: sinus rhythm - Assessment/Plan Assessment/Plan: 1. Typical atrial flutter. PLAN: - ES/P Ablation - Continue Eliquis for stroke prophylaxis. - May discharge home any time from cardiac perspective.
[2019-08-16] MEDS: Ascorbic Acid 500 mg Chewable Tablet PO SCH (08:36)
[2019-08-16] MEDS: Apixaban 5 MG TAB PO SCH (08:36)
[2019-08-16] MEDS: Lisinopril/Hydrochlorothiazide 20 mg/12.5 mg Tablet PO SCH (08:37)
[2019-08-16] MEDS: Docusate 100 MG CAP PO SCH (08:38)
[2019-08-16] MEDS: Montelukast Sodium 10 mg Tablet PO SCH (08:38)
[2019-08-16] MEDS: Mometasone/Formoterol 120 PUFF INHALER INH SCH (09:56)
[2019-08-16 11:55] VITALS: TEMP 98.5
[2019-08-16 15:42] VITALS: BP 138/65
--- NOTE | 2019-08-16 16:34 | PDOC.CPN ---
- Subjective Date: 08/16/19 Time: 11:15 Interval history: Doing well. Maintaining sinus rhythm - Review of Systems General: denies: fever/chills, weight/appetite/sleep changes, night sweats, fatigue Respiratory: denies: cough, congestion, shortness of breath, exercise intolerance Cardiovascular: denies: chest pain, palpitation, edema, paroxysmal nocturnal dyspnea, orthopnea Gastrointestinal: denies: nausea, vomiting, diarrhea, constipation, abd pain, GI bleeding Musculoskeletal: denies: pain, tenderness, stiffness, swelling, arthritis/ arthralgias Neurological: denies: numbness, syncope, seizure, weakness - Objective Allergies/Adverse Reactions: Allergies Allergy/AdvReac Type Severity Reaction Status Date / Time fexofenadine [From Gabby] Allergy Verified 08/13/19 15:27 Vital Signs & Weight: Vital Signs Temp Pulse Resp BP BP Pulse Ox 08/16/19 15:00 67 18 138/65 95 08/16/19 11:50 98.5 F 63 17 136/59 L 95 08/16/19 09:56 68 16 08/16/19 08:37 68 08/16/19 07:50 98.7 F 68 18 118/60 95 Weight 251 lb - Physical Exam General: alert & oriented x3 HEENT: mucus membranes moist Neck: supple neck Cardiac: regular rate and rhythm Lungs: clear to auscultation, normal breath sounds Neuro: grossly intact Abdomen: active bowel sounds Extremities: no edema Skin: clear Musculoskeletal: no pain - Labs Result Diagrams: 08/13/19 12:06 08/13/19 12:06 Troponin/CKMB Troponin I 0.013 ng/mL (< 0.028) 08/13/19 18:11 - Telemetry Sinus rhythms and dysrhythmias: sinus rhythm - Assessment/Plan Assessment/Plan: 1. Typical atrial flutter. PLAN: - S/P Ablation - Continue Eliquis for stroke prophylaxis. - May discharge home. - Follow up in 1 month.
== END 2019-08-16 15:42 | disposition home or self-care (01) | DRG 274 ==
LOC: ERS 11:18 → 2NO 13:38
PROVIDERS: ADMIT Internal Medicine; ATTEND Internal Medicine
PROC: 02583ZZ Destruction of Conduction Mechanism, Percutaneous Approach (ICD-10-PCS; principal; 2019-08-15)
PROC: 4A023FZ Measurement of Cardiac Rhythm, Percutaneous Approach (ICD-10-PCS; 2019-08-15)
PROC: 4A0234Z Measurement of Cardiac Electrical Activity, Percutaneous Approach (ICD-10-PCS; 2019-08-15)
PROC: 02K83ZZ Map Conduction Mechanism, Percutaneous Approach (ICD-10-PCS; 2019-08-15)
DX: I48.92 Unspecified atrial flutter (principal); I10 Essential (primary) hypertension; J45.909 Unspecified asthma, uncomplicated; E78.5 Hyperlipidemia, unspecified; Z90.710 Acquired absence of both cervix and uterus
CPT/HCPCS: 36415; 71045; 76942; 80053; 83735; 84484; 85025; 92960; 93005; 93010; 93306; 93613; 93623; 93653; C1730; C1732; C1769; J1265; J1644; J2001; J2250; J2704; J3010; J7620

== ENCOUNTER 2020-04-15 14:05 | Outpatient (CLI) | payer BC ==
--- NOTE | 2020-04-15 15:31 | BD ---
DEXA BONE DENSITOMETRY: (Dual energy x-ray absorptiometry) DATE: 04/15/2020 HISTORY: 59-year old black female for age-related, post-menopausal, osteoporosis screening. Weight: 255 lbs Height: 65 in. Age of menopause: 44 COMPARISON: None available. FINDINGS: The bone mineral density (BMD) is given in grams per square centimeter (g/cm2): LUMBAR SPINE: BMD (g/cm^2) T score Z score L1: 0.922 -0.6 0.0 L2: 0.952 -0.7 0.0 L3: 0.947 -1.2 -0.5 L4: 0.924 -1.2 -0.4 Total: 0.935 -1.0 -0.3 HIP: BMD (g/cm^2) T score Z score Femoral neck: 0.715 -1.2 -0.5 Total: 0.976 0.3 0.5 FRAX WHO fracture risk assessment tool: 10 year fracture risk* Major osteoporotic fracture: 3.0 % Hip fracture: 0.2 % Reported risk factors: [place] (black), neck BMD = 0.715 (g/cm^2), BMI = 42.4. *Fracture probability is calculated for an untreated patient. Fracture probability may be lower if th e patient has received treatment. IMPRESSION: 1.) The mean bone mineral density of the lumbar spine is normal. Fracture risk is not increased. 2) The bone mineral density of the femoral neck is osteopenic. Fracture risk is increased.
--- NOTE | 2020-04-15 16:08 | MMO ---
Bilateral MAMMO Bilat Screen [facility]. CLINICAL HISTORY: Patient is 59 years old and is seen for screening. The patient has the following family history of breast cancer: mother and cousin female, maternal. The patient has a history of cervical cancer at age 24. The patient has a history of left Ultrasound Guided Core Biopsy in Oct, 2010 - fibroadenoma and left Excisional Biopsy in - benign. VIEWS: The views performed were: bilateral craniocaudal with tomosynthesis and bilateral mediolateral oblique with tomosynthesis. FILMS COMPARED: The present examination has been compared to prior imaging studies performed at [facility] on 08/19/2009, 11/02/2010, 11/10/2010 and 03/29/2016. This study has been interpreted with the assistance of computer-aided detection. MAMMOGRAM FINDINGS: There are scattered fibroglandular densities. There is a stable mass with circumscribed margins and associated punctate calcifications and biopsy clip seen in the left breast at 6 o'clock. There are no suspicious masses, suspicious calcifications, or new areas of architectural distortion. IMPRESSION: THERE IS NO MAMMOGRAPHIC EVIDENCE OF MALIGNANCY. A ROUTINE FOLLOW-UP MAMMOGRAM IN 1 YEAR IS RECOMMENDED. THE RESULTS OF THIS EXAM WERE SENT TO THE PATIENT. ACR BI-RADS Category 2 - Benign finding MAMMOGRAPHY NOTE: 1. A negative mammogram report should not delay a biopsy if a dominant of clinically suspicious mass is present. 2. Approximately 10% to 15% of breast cancers are not detected by mammography. 3. Adenosis and dense breasts may obscure an underlying neoplasm. Reported by: YARIEL XAVIER MD Electonically Signed: [id number]
== END 2020-04-15 14:06 | disposition home or self-care (01) ==
LOC: BICMAMMO 14:05
PROVIDERS: ATTEND Nurse Practitioner Family
DX: Z13.820 Encounter for screening for osteoporosis (principal); Z12.31 Encounter for screening mammogram for malignant neoplasm of breast; R79.89 Other specified abnormal findings of blood chemistry; Z80.3 Family history of malignant neoplasm of breast; Z85.41 Personal history of malignant neoplasm of cervix uteri
CPT/HCPCS: 77063; 77067; 77080

== ENCOUNTER 2020-09-27 15:01 | Inpatient (IN) | payer BC, OTHER, SELFPAY ==
[~2020-09-27 15:01] MED LIST: Iopamidol-370 76% 500 ML 1 ML ONE
[2020-09-27] MEDS ORDERED: Diltiazem 125 MG/25 ML ONE (15:09)
[2020-09-27] MEDS ORDERED: Magnesium 2 GM/50 ML BAG (IN WATER) ONE (15:27)
[2020-09-27 15:54] LABS: #Eosinphils 0.1 thou/uL (0.0-0.7); #Lymphocytes 1.5 thou/uL (1.20-3.40); #Monocytes 0.5 thou/uL (0.11-0.59); #Neutrophils 6.5 thou/uL (1.40-6.50); %Eosinophils 1.5 % (0.0-10.0); %Lymphocytes 17.8 % (21.0-51.0); %Monocytes 5.9 % (0.0-10.0); %Neutrophils 74.7 % (42.0-75.0); Hemoglobin 13.1 g/dL (12.0-16.0); Mean Corpuscular HGB CONC 32.5 g/dL (32.0-36.0); Mean Corpuscular Hemoglobin 27.7 pg (27.0-31.0); Mean Platelet Volume 10.5 fL (7.4-10.4); Platelet Count 236 thou/uL (130-400); Red Blood Cell (RBC) Count 4.72 mill/uL (4.20-5.40); White Blood Cell (WBC) Count 8.7 thou/uL (4.8-10.8)
[2020-09-27 16:05] LABS: INR-International Normal Ratio 1.1; PTT 35.4 sec (22.9-36.1); Prothrombin Time 14.3 sec (12.0-14.7)
[2020-09-27 16:14] LABS: ALT (SGPT) 32 U/L (8-55); AST (SGOT) 21 U/L (5-34); Albumin 3.6 g/dL (3.4-4.8); Alkaline Phosphatase 115 U/L (40-110); Anion Gap 12 mmol/L (10-20); BUN (Urea Nitrogen) 11 mg/dL (9.8-20.1); Bilirubin, Total 0.7 mg/dL (0.2-1.2); Calc. Creatinine Clearance 0 mL/min (70-130); Calcium 8.8 mg/dL (7.8-10.44); Carbon Dioxide 26 mmol/L (23-31); Chloride 106 mmol/L (98-107); Globulin 4.1 g/dL (2.4-3.5); Glucose 113 mg/dL (80-115); Magnesium 1.7 mg/dL (1.6-2.6); Potassium 3.7 mmol/L (3.5-5.1); Protein, Total 7.7 g/dL (5.8-8.1); Sodium 140 mmol/L (136-145)
[2020-09-27 17:14] LABS: Bilirubin Negative (Negative); Blood, Urine Negative (Negative); Clarity Clear (Clear); Glucose, Urine (Dipstick) Normal (Negative); Ketone, Urine Negative (Negative); Leukocyte Negative Leu/uL (Negative); Nitrite Negative (Negative); Protein, Urine (Dipstick) 10 mg/dL (Neg-Trace); Specific Gravity, Urine 1.015 (1.002-1.036); Urobilinogen Normal mg/dL (Less than 2); pH, Urine 6.5 (5.0-9.0)
[2020-09-27] MEDS ORDERED: Enoxaparin Sodium 80 MG/0.8 ML SYRINGE ONE (18:20)
[2020-09-27] MEDS ORDERED: Enoxaparin Sodium 40 MG/0.4 ML SYRINGE ONE (18:20)
[2020-09-27] MEDS ORDERED: Furosemide 40 MG/4 ML VIAL SLOW IVP SCH (18:30)
[2020-09-27 18:56] LABS: Lactic Acid 1.4 mmol/L (0.5-2.2)
[2020-09-27 19:33] LABS: Troponin I Less than 0.010 ng/mL (< 0.028)
[2020-09-27 19:47] LABS: Free T4 (Free Thyroxine) 1.08 ng/dL (0.70-1.48); Thyroid Stimulating Hormone 0.4765 uIU/mL (0.35-4.94)
[2020-09-27] MEDS: cefTRIAXone\\ROCEPHIN 1 GM in Sodium Chloride 0.9% 100 ML IVPB SCH (22:18)
[2020-09-27] MEDS: Famotidine/PF 20 mg/2ml Vial SLOW IVP SCH (22:18)
[2020-09-27] MEDS: methylPREDNISolone Sod Succ/PF 125 MG/2 ML VIAL IVP SCH (22:18)
[2020-09-27] MEDS: Azithromycin 500 MG in Sodium Chloride 0.9% 250 ML 250 ML IVPB SCH (22:35)
[2020-09-27] MEDS: Albuterol 200 PUFF (6.7GM INHALER) INH SCH (22:35)
[2020-09-28 01:55] LABS: Troponin I 0.013 ng/mL (< 0.028)
[2020-09-28] MEDS: Albuterol 200 PUFF (6.7GM INHALER) INH SCH ×6 (02:01→22:22)
[2020-09-28 03:48] VITALS: BMI 45.3
[2020-09-28 04:52] LABS: SARS-CoV-2 PCR by NAA Not Detected (NotDetected)
[2020-09-28] MEDS: methylPREDNISolone Sod Succ/PF 125 MG/2 ML VIAL IVP SCH (06:13)
[2020-09-28] MEDS: Diltiazem HCl 125 MG, Admixture Fee 1 EACH in Sodium Chloride 0.9% 100 ML IVPB SCH ×2 (07:51→15:24)
[2020-09-28] MEDS ORDERED: Famotidine 20 MG TAB PO PRN (08:30)
[2020-09-28] MEDS ORDERED: Loratadine 10 MG TAB PO PRN (08:30)
[2020-09-28 08:32] LABS: Troponin I 0.011 ng/mL (< 0.028)
[2020-09-28] MEDS ORDERED: Enoxaparin Sodium 40 MG/0.4 ML SYRINGE SC SCH (09:00)
[2020-09-28] MEDS: Docusate 100 MG CAP PO SCH ×2 (10:06→20:25)
[2020-09-28] MEDS: Montelukast Sodium 10 mg Tablet PO SCH (10:06)
[2020-09-28] MEDS: Carvedilol 6.25 MG TAB PO SCH (10:06)
[2020-09-28] MEDS: Aspirin 81 mg Enteric Coated Tablet PO SCH (10:06)
[2020-09-28] MEDS: Famotidine/PF 20 mg/2ml Vial SLOW IVP SCH ×2 (10:07→20:25)
[2020-09-28] MEDS: methylPREDNISolone Sod Succ 40 MG VIAL IVP SCH ×2 (12:19→18:16)
[2020-09-28 14:15] LABS: SARS-CoV-2 IgG Ab Non-Reactive (NonReactive); SARS-CoV-2 IgG Index 0.02 S/CO (< 1.40)
[2020-09-28] MEDS: Mometasone 200 MCG/Formoterol 5 MCG 120 PUFF INHALER INH SCH (19:23)
[2020-09-28] MEDS ORDERED: Amiodarone 150 MG, Admixture Fee 1 EACH in Dextrose 5% in Water 100 ML IVPB SCH (19:30)
[2020-09-28] MEDS: Azithromycin 500 MG in Sodium Chloride 0.9% 250 ML 250 ML IVPB SCH (20:20)
[2020-09-28] MEDS: Rosuvastatin 10 MG TAB PO SCH (20:24)
[2020-09-28] MEDS: Enoxaparin Sodium 120 MG/0.8 ML SYRINGE SC SCH (20:25)
[2020-09-28] MEDS: Amiodarone 450 MG in Dextrose 5% in Water 250 ML IVPB SCH (21:31)
[2020-09-28] MEDS: cefTRIAXone\\ROCEPHIN 1 GM in Sodium Chloride 0.9% 100 ML IVPB SCH (23:04)
[2020-09-29] MEDS: Albuterol 200 PUFF (6.7GM INHALER) INH SCH ×6 (02:48→22:08)
[2020-09-29] MEDS: methylPREDNISolone Sod Succ 40 MG VIAL IVP SCH ×5 (03:09→23:52)
[2020-09-29] MEDS: Mometasone 200 MCG/Formoterol 5 MCG 120 PUFF INHALER INH SCH ×2 (08:01→18:47)
[2020-09-29] MEDS: Carvedilol 6.25 MG TAB PO SCH (08:51)
[2020-09-29] MEDS: Famotidine/PF 20 mg/2ml Vial SLOW IVP SCH ×2 (08:51→21:41)
[2020-09-29] MEDS: Montelukast Sodium 10 mg Tablet PO SCH (08:51)
[2020-09-29] MEDS: Enoxaparin Sodium 120 MG/0.8 ML SYRINGE SC SCH ×2 (08:51→21:42)
[2020-09-29] MEDS: Aspirin 81 mg Enteric Coated Tablet PO SCH (08:51)
[2020-09-29] MEDS: Docusate 100 MG CAP PO SCH ×2 (08:51→21:40)
[2020-09-29] MEDS: Amiodarone 450 MG in Dextrose 5% in Water 250 ML IVPB SCH (08:52)
[2020-09-29] MEDS ORDERED: Furosemide 40 MG/4 ML VIAL SLOW IVP SCH (16:45)
[2020-09-29] MEDS: cefTRIAXone\\ROCEPHIN 1 GM in Sodium Chloride 0.9% 100 ML IVPB SCH (21:34)
[2020-09-29] MEDS: Azithromycin 500 MG in Sodium Chloride 0.9% 250 ML 250 ML IVPB SCH (21:39)
[2020-09-29] MEDS: Rosuvastatin 10 MG TAB PO SCH (21:40)
[2020-09-30] MEDS: Albuterol 200 PUFF (6.7GM INHALER) INH SCH ×6 (02:23→22:54)
[2020-09-30] MEDS: methylPREDNISolone Sod Succ 40 MG VIAL IVP SCH ×4 (05:10→23:13)
[2020-09-30] MEDS: Mometasone 200 MCG/Formoterol 5 MCG 120 PUFF INHALER INH SCH ×2 (07:01→19:11)
[2020-09-30] MEDS ORDERED: PROPOFOL 20 ML ONE (09:09)
[2020-09-30] MEDS ORDERED: PROPOFOL 200 MG/20 ML VIAL ONE (09:12)
[2020-09-30 11:28] LABS: Hemoglobin 13.3 g/dL (12.0-16.0); Platelet Count 186 thou/uL (130-400)
[2020-09-30] MEDS: Aspirin 81 mg Enteric Coated Tablet PO SCH (11:41)
[2020-09-30] MEDS: Docusate 100 MG CAP PO SCH ×3 (11:42→20:55)
[2020-09-30] MEDS: Carvedilol 6.25 MG TAB PO SCH (11:42)
[2020-09-30] MEDS: Famotidine/PF 20 mg/2ml Vial SLOW IVP SCH (11:43)
[2020-09-30] MEDS: Montelukast Sodium 10 mg Tablet PO SCH (11:43)
[2020-09-30] MEDS: Enoxaparin Sodium 120 MG/0.8 ML SYRINGE SC SCH ×2 (11:43→20:42)
[2020-09-30] MEDS: cefTRIAXone\\ROCEPHIN 1 GM in Sodium Chloride 0.9% 100 ML IVPB SCH (20:41)
[2020-09-30] MEDS: Azithromycin 500 MG in Sodium Chloride 0.9% 250 ML 250 ML IVPB SCH (20:41)
[2020-09-30] MEDS: Rosuvastatin 10 MG TAB PO SCH (20:42)
[2020-09-30] MEDS: Amiodarone 200 MG TAB PO SCH (20:42)
[2020-09-30] MEDS: Famotidine 20 MG TAB PO SCH (20:43)
[2020-10-01] MEDS: Albuterol 200 PUFF (6.7GM INHALER) INH SCH ×4 (00:57→15:12)
[2020-10-01] MEDS: methylPREDNISolone Sod Succ 40 MG VIAL IVP SCH ×2 (05:29→12:49)
[2020-10-01] MEDS: Mometasone 200 MCG/Formoterol 5 MCG 120 PUFF INHALER INH SCH (07:19)
[2020-10-01] MEDS: Enoxaparin Sodium 120 MG/0.8 ML SYRINGE SC SCH (09:49)
[2020-10-01] MEDS: Aspirin 81 mg Enteric Coated Tablet PO SCH (09:50)
[2020-10-01] MEDS: Docusate 100 MG CAP PO SCH (09:50)
[2020-10-01] MEDS: Montelukast Sodium 10 mg Tablet PO SCH (09:50)
[2020-10-01] MEDS: Famotidine 20 MG TAB PO SCH (09:50)
[2020-10-01] MEDS: Amiodarone 200 MG TAB PO SCH (09:50)
[2020-10-01] MEDS: Carvedilol 6.25 MG TAB PO SCH (09:50)
[2020-10-01 17:56] VITALS: BP 145/52; TEMP 98.5
[2020-10-01] MEDS ORDERED: Apixaban 5 MG TAB PO SCH (21:00)
[2020-10-02] MEDS ORDERED: predniSONE 20 MG TAB PO SCH (08:00)
[2020-10-02] MEDS ORDERED: Azithromycin 250 MG TAB PO SCH (09:00)
[2020-10-02] MEDS ORDERED: Azithromycin 200 MG/5 ML Oral Suspension PO SCH (09:00)
[2020-10-09] MEDS ORDERED: Amiodarone 200 MG TAB PO SCH (09:00)
== END 2020-10-01 18:40 | disposition home or self-care (01) | DRG 291 ==
LOC: ERS 15:01 → SUATTDRO 15:01 → ERHOLD 17:38 → 2NO 20:03
PROVIDERS: ADMIT Internal Medicine; ATTEND Internal Medicine
PROC: B24BZZ4 Ultrasonography of Heart with Aorta, Transesophageal (ICD-10-PCS; principal; 2020-09-30)
PROC: 5A2204Z Restoration of Cardiac Rhythm, Single (ICD-10-PCS; 2020-09-30)
DX: I11.0 Hypertensive heart disease with heart failure (principal); J18.9 Pneumonia, unspecified organism; J96.01 Acute respiratory failure with hypoxia; J81.0 Acute pulmonary edema; I48.92 Unspecified atrial flutter; Z68.42 Body mass index [BMI] 45.0-49.9, adult; J44.0 Chronic obstructive pulmonary disease with (acute) lower respiratory infection; J44.1 Chronic obstructive pulmonary disease with (acute) exacerbation; K21.9 Gastro-esophageal reflux disease without esophagitis; I50.33 Acute on chronic diastolic (congestive) heart failure; E78.5 Hyperlipidemia, unspecified; I48.91 Unspecified atrial fibrillation; Z88.8 Allergy status to other drugs, medicaments and biological substances; Z79.01 Long term (current) use of anticoagulants; E66.01 Morbid (severe) obesity due to excess calories; J45.909 Unspecified asthma, uncomplicated
CPT/HCPCS: 36415; 71045; 71046; 71275; 80053; 81003; 82565; 83605; 83735; 83880; 84145; 84439; 84443; 84481; 84484; 85014; 85018; 85025; 85049; 85379; 85610; 85730; 86769; 87635; 92960; 93005; 93306; 93312; 96365; 96372; 96374; 96376; J0282; J0456; J0696; J1650; J1940; J2704; J2920; J2930; J3475; J3490; J7050; J7070; J7620; Q9967; S0028; U0003; U0005

== ENCOUNTER 2021-04-27 12:36 | Outpatient (CLI) | payer OTHER | END 2021-04-27 12:37 | disposition home or self-care (01) | LOC: DTY/OP 12:36 | PROVIDERS: ATTEND Nurse Practitioner Family | DX: E66.01 Morbid (severe) obesity due to excess calories (principal) | CPT/HCPCS: 97802 ==

== ENCOUNTER 2021-08-02 14:46 | Emergency (ER) | payer BC, OTHER ==
[2021-08-02] MEDS ORDERED: methylPREDNISolone Sod Succ/PF 125 MG/2 ML VIAL ONE (15:14)
[2021-08-02] MEDS ORDERED: Albuterol 200 PUFF (6.7GM INHALER) ONE (15:47)
[2021-08-02 15:51] LABS: #Eosinphils 0.1 thou/uL (0.0-0.7); #Lymphocytes 1.3 thou/uL (1.20-3.40); #Monocytes 0.5 thou/uL (0.11-0.59); #Neutrophils 7.2 thou/uL (1.40-6.50); %Basophils 0.1 % (0.0-1.0); %Eosinophils 1.1 % (0.0-10.0); %Lymphocytes 14.3 % (21.0-51.0); %Monocytes 5.7 % (0.0-10.0); %Neutrophils 78.8 % (42.0-75.0); Hemoglobin 12.7 g/dL (12.0-16.0); Mean Corpuscular Hemoglobin 26.9 pg (27.0-31.0); Mean Platelet Volume 8.8 fL (7.4-10.4); Platelet Count 262 thou/uL (130-400); RBC Distribution Width 13.5 % (11.5-14.5); White Blood Cell (WBC) Count 9.2 thou/uL (4.8-10.8)
[2021-08-02 16:14] LABS: ALT (SGPT) 20 U/L (8-55); AST (SGOT) 20 U/L (5-34); Albumin 3.4 g/dL (3.4-4.8); Alkaline Phosphatase 80 U/L (40-110); Anion Gap 14 mmol/L (10-20); BUN (Urea Nitrogen) 10 mg/dL (9.8-20.1); Bilirubin, Total 0.3 mg/dL (0.2-1.2); Calc. Creatinine Clearance 0 mL/min (70-130); Calcium 8.9 mg/dL (7.8-10.44); Carbon Dioxide 29 mmol/L (23-31); Chloride 103 mmol/L (98-107); Globulin 3.9 g/dL (2.4-3.5); Glucose 102 mg/dL (80-115); Potassium 4.1 mmol/L (3.5-5.1); Protein, Total 7.3 g/dL (5.8-8.1); Sodium 142 mmol/L (136-145)
== END 2021-08-02 17:55 | disposition home or self-care (01) ==
LOC: ERS 14:46
DX: J44.1 Chronic obstructive pulmonary disease with (acute) exacerbation (principal); Z79.899 Other long term (current) drug therapy; Z79.82 Long term (current) use of aspirin; Z79.01 Long term (current) use of anticoagulants; E78.5 Hyperlipidemia, unspecified; E78.00 Pure hypercholesterolemia, unspecified; I10 Essential (primary) hypertension; I48.91 Unspecified atrial fibrillation; U07.1 COVID-19
CPT/HCPCS: 71045; 80053; 83605; 83880; 84484; 85025; 93005; 94664; 96374; J2930; J7620; U0003; U0005

== ENCOUNTER 2021-12-29 10:46 | Outpatient (CLI) | payer BC | END 2021-12-29 10:47 | disposition home or self-care (01) | LOC: BICRAD 10:46 | PROVIDERS: ATTEND Nurse Practitioner Family | DX: M25.561 Pain in right knee (principal); M17.11 Unilateral primary osteoarthritis, right knee ==

== ENCOUNTER 2022-10-02 12:36 | Outpatient (CLI) | payer BC | END 2022-10-02 12:37 | disposition home or self-care (01) | LOC: BICMAMMO 12:36 | PROVIDERS: ATTEND Nurse Practitioner Family | DX: Z12.31 Encounter for screening mammogram for malignant neoplasm of breast (principal); Z80.3 Family history of malignant neoplasm of breast; Z85.41 Personal history of malignant neoplasm of cervix uteri; Z91.89 Other specified personal risk factors, not elsewhere classified | CPT/HCPCS: 77063; 77067 ==

== ENCOUNTER 2023-08-16 14:09 | Outpatient (CLI) | payer OTHER | END 2023-08-16 14:10 | disposition home or self-care (01) | LOC: BICULT 14:09 | PROVIDERS: ATTEND Nurse Practitioner Family | DX: E07.9 Disorder of thyroid, unspecified (principal) | CPT/HCPCS: 76536 ==

== ENCOUNTER 2024-06-03 12:23 | Outpatient (CLI) | payer MEDICARE | END 2024-06-03 12:24 | disposition home or self-care (01) | LOC: BICRAD 12:23 | PROVIDERS: ATTEND Nurse Practitioner Family | DX: J44.9 Chronic obstructive pulmonary disease, unspecified (principal); J81.1 Chronic pulmonary edema; R09.89 Other specified symptoms and signs involving the circulatory and respiratory systems; R05.9 Cough, unspecified | CPT/HCPCS: 71046 ==